=== PATIENT | female | born 1990 | race Caucasian/White ===

== ENCOUNTER 2017-08-08 09:36 | Emergency (ER) | payer SELFPAY | END 2017-08-08 10:50 | disposition home or self-care (01) | LOC: D.ER 09:36 | DX: J20.9 Acute bronchitis, unspecified (principal); J06.9 Acute upper respiratory infection, unspecified ==

== ENCOUNTER 2017-10-17 13:05 | Emergency (ER) | payer SELFPAY | END 2017-10-17 15:33 | disposition home or self-care (01) | LOC: D.ER 13:05 | DX: J06.9 Acute upper respiratory infection, unspecified (principal) ==

== ENCOUNTER 2018-03-10 11:38 | Emergency (ER) | payer MEDICAID ==
[~2018-03-10] VITALS: Ht 154.9 cm; Wt 50.0 kg
[2018-03-10 11:48] VITALS: Ht 154.9 cm; Wt 50.0 kg
[2018-03-10] MEDS ORDERED: KEFLEX500 MG PO (11:51)
[2018-03-10 12:13] LABS: APPEARANCE CLEAR (CLEAR); BILIRUBIN NEGATIVE (NEGATIVE); COLOR YELLOW (YELLOW); GLUCOSE NEGATIVE (NEGATIVE); KETONE NEGATIVE (NEGATIVE); NITRITE NEGATIVE (NEGATIVE); PROTEIN NEGATIVE (NEGATIVE); SPECIFIC GRAVITY 1.015 (1.005-1.020); UROBILINOGEN NORMAL (NORMAL)
[2018-03-10] MEDS ORDERED: MONISTAT DERM TOPICAL (12:42)
[2018-03-10 13:25] VITALS: BP 112/68
== END 2018-03-10 13:30 | disposition home or self-care (01) ==
LOC: D.ER 11:38
PROVIDERS: Emergency Medicine
DX: O26.892 Other specified pregnancy related conditions, second trimester (principal); Z3A.00 Weeks of gestation of pregnancy not specified; R10.9 Unspecified abdominal pain; B37.3 Candidiasis of vulva and vagina

== ENCOUNTER 2018-09-28 15:54 | Emergency (ER) | payer MEDICAID ==
[~2018-09-28] VITALS: Ht 154.9 cm; Wt 63.6 kg
[~2018-09-28 15:54] MED LIST: KEFLEX500 MG PO; MONISTAT DERM TOPICAL
[2018-09-28 15:59] VITALS: Ht 154.9 cm; Wt 63.6 kg
[2018-09-28 16:41] LABS: BASOPHILS 0.3 % (0-2); EOSINOPHILS 0.9 % (0-7); HEMATOCRIT 32.5 % (36.0-48.0); HEMOGLOBIN 10.9 g/dL (12-16); IMMATURE GRANULOCYTES 0.4 % (0-5); LYMPHOCYTES 18.9 % (15-50); MCH 29.4 pg (26.0-34.0); MCHC 33.5 g/dL (31.0-37.0); MCV 87.6 fL (80.0-100.0); MEAN PLATELET VOLUME 9.7 fL (7.4-10.4); MONOCYTES 6.1 % (2-11); NEUTROPHILS 73.4 % (40-80); PLATELET COUNT 334 10x3/uL (130-400); RBC 3.71 10x6/uL (4.00-5.40); RDW 13.1 % (11.5-14.5); WBC 7.9 10x3/uL (4.8-10.8)
[2018-09-28 16:45] LABS: ALBUMIN 2.6 g/dL (3.4-5.0); ALKALINE PHOSPHATASE 168 U/L (46-116); ALT (SGPT) 19 U/L (10-68); BILIRUBIN - TOTAL 0.36 mg/dL (0.2-1.3); CALC OSMOLALITY 267 mosm/kg (275-300); CALCIUM 8.9 mg/dL (8.5-10.1); CARBON DIOXIDE 22.8 mmol/L (21.0-32.0); CHLORIDE - SERUM 99 mmol/L (98-107); CREATININE - SERUM 0.5 mg/dL (0.6-1.3); GLUCOSE 85 mg/dL (74-106); SODIUM 135 mmol/L (136-145); UREA NITROGEN 9 mg/dL (7-18); eGFR NON AFRICAN AMERICAN > 90 mL/min (90-120)
[2018-09-28 17:20] LABS: APPEARANCE CLEAR (CLEAR); BILIRUBIN NEGATIVE (NEGATIVE); COLOR YELLOW (YELLOW); GLUCOSE NEGATIVE (NEGATIVE); KETONE NEGATIVE (NEGATIVE); NITRITE NEGATIVE (NEGATIVE); PROTEIN TRACE mg/dL (NEGATIVE); UROBILINOGEN NORMAL (NORMAL)
[2018-09-28 17:21] LABS: BACTERIA MANY /hpf (NONE SEEN); RED CELLS - URINE OCC /hpf (0-5); WHITE CELLS - URINE 0-5 /hpf (0-5)
[2018-09-28 18:39] VITALS: BP 108/64
== END 2018-09-28 18:40 | disposition home or self-care (01) ==
LOC: D.ER 15:54
PROVIDERS: Family Medicine
DX: O26.893 Other specified pregnancy related conditions, third trimester (principal); Z3A.32 32 weeks gestation of pregnancy; E86.0 Dehydration

== ENCOUNTER 2020-02-10 17:03 | Emergency (ER) | payer MEDICAID ==
[~2020-02-10] VITALS: Ht 154.9 cm; Wt 53.2 kg
[2020-02-10 17:19] VITALS: Ht 154.9 cm; Wt 53.2 kg
[2020-02-10 17:46] LABS: BASOPHILS 0.8 % (0-2); EOSINOPHILS 10.1 % (0-7); HEMATOCRIT 36.9 % (36.0-48.0); HEMOGLOBIN 12.3 g/dL (12-16); IMMATURE GRANULOCYTES 0.1 % (0-5); LYMPHOCYTES 34.5 % (15-50); MCH 30.3 pg (26.0-34.0); MCHC 33.3 g/dL (31.0-37.0); MCV 90.9 fL (80.0-100.0); MEAN PLATELET VOLUME 8.9 fL (7.4-10.4); MONOCYTES 5.1 % (2-11); NEUTROPHILS 49.4 % (40-80); PLATELET COUNT 318 10x3/uL (130-400); RBC 4.06 10x6/uL (4.00-5.40); RDW 14.4 % (11.5-14.5); WBC 7.7 10x3/uL (4.8-10.8)
[2020-02-10 18:11] LABS: CALC OSMOLALITY 269 mosm/kg (275-300); CALCIUM 8.7 mg/dL (8.5-10.1); CARBON DIOXIDE 26.5 mmol/L (21.0-32.0); CHLORIDE - SERUM 103 mmol/L (98-107); CREATININE - SERUM 0.6 mg/dL (0.6-1.3); GLUCOSE 75 mg/dL (74-106); POTASSIUM - SERUM 3.6 mmol/L (3.5-5.1); SODIUM 135 mmol/L (136-145); UREA NITROGEN 14 mg/dL (7-18); eGFR NON AFRICAN AMERICAN > 90 mL/min (90-120)
[2020-02-10 18:19] LABS: ALBUMIN 3.9 g/dL (3.4-5.0); ALKALINE PHOSPHATASE 73 U/L (30-120); ALT (SGPT) 21 U/L (10-68); AMYLASE - SERUM 73 U/L (25-115); BILIRUBIN - TOTAL 0.48 mg/dL (0.2-1.3); LIPASE 123 U/L (73-393); PROTEIN - SERUM 7.8 g/dL (6.4-8.2)
[2020-02-10 18:20] LABS: BILIRUBIN NEGATIVE (NEGATIVE); GLUCOSE NEGATIVE (NEGATIVE); KETONE NEGATIVE (NEGATIVE); NITRITE NEGATIVE (NEGATIVE); RED CELLS - URINE 0-5 /hpf (0-5); SPECIFIC GRAVITY 1.025 (1.005-1.020); TROPONIN-I < 0.017 ng/mL (0.000-0.060); UROBILINOGEN NORMAL (NORMAL); WHITE CELLS - URINE 0-5 /hpf (NEGATIVE)
[2020-02-10 18:21] LABS: BACTERIA MODERATE /hpf (NEGATIVE); HCG URINE NEGATIVE (NEGATIVE)
[2020-02-10] MEDS ORDERED: MACROBID100 MG PO (18:50)
[2020-02-10] MEDS ORDERED: KEFLEX500 MG PO (18:50)
[2020-02-10] MEDS ORDERED: ZOFRAN ODT4 MG/UDTAB PO (18:50)
[2020-02-10 19:18] VITALS: BP 130/92
== END 2020-02-10 19:18 | disposition home or self-care (01) ==
LOC: D.ER 17:03
PROVIDERS: Family Medicine
DX: N39.0 Urinary tract infection, site not specified (principal); R11.2 Nausea with vomiting, unspecified; R10.30 Lower abdominal pain, unspecified; R51 Headache; H92.09 Otalgia, unspecified ear

== ENCOUNTER 2020-04-10 19:42 | Emergency (ER) | payer MEDICAID ==
[~2020-04-10] VITALS: Ht 154.9 cm; Wt 54.5 kg
[~2020-04-10 19:42] MED LIST changes: +MACROBID100 MG PO; +ZOFRAN ODT4 MG/UDTAB PO
[2020-04-10 19:49] VITALS: Ht 154.9 cm; Wt 54.5 kg
[2020-04-10 20:15] LABS: BASOPHILS 0.9 % (0-2); EOSINOPHILS 7.4 % (0-7); HEMATOCRIT 39.6 % (36.0-48.0); HEMOGLOBIN 13.2 g/dL (12-16); IMMATURE GRANULOCYTES 0.2 % (0-5); LYMPHOCYTES 40.6 % (15-50); MCH 30.6 pg (26.0-34.0); MCHC 33.3 g/dL (31.0-37.0); MCV 91.9 fL (80.0-100.0); MEAN PLATELET VOLUME 8.9 fL (7.4-10.4); MONOCYTES 6.3 % (2-11); NEUTROPHILS 44.6 % (40-80); PLATELET COUNT 257 10x3/uL (130-400); RBC 4.31 10x6/uL (4.00-5.40); RDW 12.8 % (11.5-14.5); WBC 6.6 10x3/uL (4.8-10.8)
[2020-04-10 20:24] LABS: CALC OSMOLALITY 270 mosm/kg (275-300); CALCIUM 8.8 mg/dL (8.5-10.1); CARBON DIOXIDE 29.4 mmol/L (21.0-32.0); CHLORIDE - SERUM 101 mmol/L (98-107); CREATININE - SERUM 0.8 mg/dL (0.6-1.3); POTASSIUM - SERUM 3.5 mmol/L (3.5-5.1); SODIUM 137 mmol/L (136-145); UREA NITROGEN 11 mg/dL (7-18); eGFR NON AFRICAN AMERICAN 89 mL/min (90-120)
[2020-04-10 20:27] LABS: GLUCOSE 69 mg/dL (74-106)
[2020-04-10 20:35] LABS: HCG SERUM NEGATIVE (NEGATIVE)
[2020-04-10 20:38] LABS: ALBUMIN 3.8 g/dL (3.4-5.0); ALKALINE PHOSPHATASE 76 U/L (30-120); ALT (SGPT) 16 U/L (10-68); LIPASE 123 U/L (73-393); PROTEIN - SERUM 7.8 g/dL (6.4-8.2); UDS - AMPHET NEGATIVE QUAL (NEGATIVE); UDS - BARB NEGATIVE QUAL (NEGATIVE); UDS - BENZO NEGATIVE QUAL (NEGATIVE); UDS - COCAINE NEGATIVE QUAL (NEGATIVE); UDS - OPIATE NEGATIVE QUAL (NEGATIVE); UDS - PCP NEGATIVE QUAL (NEGATIVE); UDS - THC NEGATIVE QUAL (NEGATIVE)
[2020-04-10] MEDS ORDERED: ZOFRAN ODT4 MG/UDTAB PO (20:47)
[2020-04-10 20:57] LABS: BILIRUBIN NEGATIVE (NEGATIVE); GLUCOSE NEGATIVE (NEGATIVE); KETONE NEGATIVE (NEGATIVE); NITRITE NEGATIVE (NEGATIVE); SPECIFIC GRAVITY 1.015 (1.005-1.020); UROBILINOGEN NORMAL (NORMAL)
[2020-04-10 21:49] VITALS: BP 113/68
== END 2020-04-10 21:50 | disposition home or self-care (01) ==
LOC: D.ER 19:42
PROVIDERS: Family Medicine
DX: R10.9 Unspecified abdominal pain (principal); R11.2 Nausea with vomiting, unspecified; R42 Dizziness and giddiness; R51 Headache

== ENCOUNTER 2020-04-18 04:37 | Emergency (ER) | payer MEDICAID ==
[~2020-04-18] VITALS: Ht 154.9 cm; Wt 54.4 kg
[2020-04-18 04:40] VITALS: Ht 154.9 cm; Wt 54.4 kg
[2020-04-18 04:54] LABS: BILIRUBIN NEGATIVE (NEGATIVE); GLUCOSE NEGATIVE (NEGATIVE); HCG URINE NEGATIVE (NEGATIVE); KETONE NEGATIVE (NEGATIVE); NITRITE NEGATIVE (NEGATIVE); UROBILINOGEN NORMAL (NORMAL)
[2020-04-18 04:57] LABS: AMORPHOUS SEDIMENT >1+ /lpf (NONE SEEN); BACTERIA FEW /hpf (NEGATIVE)
[2020-04-18 05:03] LABS: BASOPHILS 0.6 % (0-2); EOSINOPHILS 7.8 % (0-7); HEMATOCRIT 37.6 % (36.0-48.0); HEMOGLOBIN 12.9 g/dL (12-16); IMMATURE GRANULOCYTES 0.1 % (0-5); LYMPHOCYTES 30.4 % (15-50); MCH 30.7 pg (26.0-34.0); MCHC 34.3 g/dL (31.0-37.0); MCV 89.5 fL (80.0-100.0); MONOCYTES 7.8 % (2-11); NEUTROPHILS 53.3 % (40-80); PLATELET COUNT 270 10x3/uL (130-400); RDW 12.8 % (11.5-14.5); WBC 8.3 10x3/uL (4.8-10.8)
[2020-04-18 05:13] LABS: CALC OSMOLALITY 273 mosm/kg (275-300); CALCIUM 8.9 mg/dL (8.5-10.1); CARBON DIOXIDE 28.9 mmol/L (21.0-32.0); CHLORIDE - SERUM 102 mmol/L (98-107); CREATININE - SERUM 0.8 mg/dL (0.6-1.3); GLUCOSE 93 mg/dL (74-106); POTASSIUM - SERUM 3.7 mmol/L (3.5-5.1); SODIUM 136 mmol/L (136-145); UREA NITROGEN 17 mg/dL (7-18); eGFR NON AFRICAN AMERICAN 89 mL/min (90-120)
[2020-04-18 05:18] LABS: ALBUMIN 3.7 g/dL (3.4-5.0); ALKALINE PHOSPHATASE 66 U/L (30-120); ALT (SGPT) 19 U/L (10-68); AMYLASE - SERUM 111 U/L (25-115); BILIRUBIN - TOTAL 0.26 mg/dL (0.2-1.3); LIPASE 369 U/L (73-393); PROTEIN - SERUM 7.6 g/dL (6.4-8.2)
[2020-04-18] MEDS ORDERED: OMNICEF300 MG PO (06:49)
[2020-04-18] MEDS ORDERED: PHENAZOPYRIDIN100 MG PO (06:49)
[2020-04-18 07:02] VITALS: BP 118/62
== END 2020-04-18 07:02 | disposition home or self-care (01) ==
LOC: D.ER 04:37
PROVIDERS: Family Medicine
DX: N39.0 Urinary tract infection, site not specified (principal); R10.9 Unspecified abdominal pain

== ENCOUNTER 2020-06-15 17:18 | Emergency (ER) | payer MEDICAID ==
[~2020-06-15] VITALS: Ht 154.9 cm; Wt 55.9 kg
[~2020-06-15 17:18] MED LIST changes: +OMNICEF300 MG PO; +PHENAZOPYRIDIN100 MG PO
[2020-06-15 17:31] VITALS: Ht 154.9 cm; Wt 55.9 kg
[2020-06-15 19:19] LABS: BILIRUBIN NEGATIVE (NEGATIVE); HCG URINE POSITIVE (NEGATIVE); KETONE SMALL mg/dL (NEGATIVE); NITRITE NEGATIVE (NEGATIVE); UROBILINOGEN NORMAL mg/dL (< 2)
[2020-06-15 19:20] LABS: BASOPHILS 0.6 % (0-2); EOSINOPHILS 4.5 % (0-7); HEMATOCRIT 38.6 % (36.0-48.0); HEMOGLOBIN 13.1 g/dL (12-16); IMMATURE GRANULOCYTES 0.3 % (0-5); LYMPHOCYTES 27.3 % (15-50); MCH 30.9 pg (26.0-34.0); MCHC 33.9 g/dL (31.0-37.0); MEAN PLATELET VOLUME 8.9 fL (7.4-10.4); MONOCYTES 5.9 % (2-11); NEUTROPHILS 61.4 % (40-80); PLATELET COUNT 301 10x3/uL (130-400); RBC 4.24 10x6/uL (4.00-5.40); RDW 13.5 % (11.5-14.5); WBC 7.1 10x3/uL (4.8-10.8)
[2020-06-15 19:32] LABS: CALC OSMOLALITY 271 mosm/kg (275-300); CALCIUM 8.6 mg/dL (8.5-10.1); CARBON DIOXIDE 26.3 mmol/L (21.0-32.0); CHLORIDE - SERUM 105 mmol/L (98-107); CREATININE - SERUM 0.6 mg/dL (0.6-1.3); GLUCOSE 95 mg/dL (74-106); POTASSIUM - SERUM 3.8 mmol/L (3.5-5.1); SODIUM 137 mmol/L (136-145); UREA NITROGEN 6 mg/dL (7-18); eGFR NON AFRICAN AMERICAN > 90 mL/min (90-120)
[2020-06-15 19:39] LABS: ALBUMIN 3.5 g/dL (3.4-5.0); ALKALINE PHOSPHATASE 55 U/L (30-120); ALT (SGPT) 14 U/L (10-68); AMYLASE - SERUM 69 U/L (25-115); BILIRUBIN - TOTAL 0.35 mg/dL (0.2-1.3); LIPASE 119 U/L (73-393); PROTEIN - SERUM 7.2 g/dL (6.4-8.2)
[2020-06-15 19:40] LABS: TROPONIN-I < 0.017 ng/mL (0.000-0.060)
[2020-06-16 00:13] VITALS: BP 102/58
== END 2020-06-16 00:16 | disposition home or self-care (01) ==
LOC: D.ER 17:18
PROVIDERS: Family Medicine
DX: O26.899 Other specified pregnancy related conditions, unspecified trimester (principal); R10.9 Unspecified abdominal pain; Z3A.00 Weeks of gestation of pregnancy not specified

== ENCOUNTER 2020-07-01 22:09 | Emergency (ER) | payer MEDICAID ==
[~2020-07-01] VITALS: Ht 154.9 cm; Wt 56.7 kg
[2020-07-01 22:52] VITALS: Ht 154.9 cm; Wt 56.7 kg
[2020-07-02] MEDS ORDERED: FLUTICASONE PRO16 GM NASAL (00:11)
[2020-07-02] MEDS ORDERED: KEFLEX500 MG PO (00:11)
[2020-07-02 00:19] VITALS: BP 114/74
== END 2020-07-02 00:19 | disposition home or self-care (01) ==
LOC: D.ER 22:09
DX: O26.891 Other specified pregnancy related conditions, first trimester (principal); Z3A.01 Less than 8 weeks gestation of pregnancy; J01.90 Acute sinusitis, unspecified; R51.9 Headache, unspecified

== ENCOUNTER 2020-12-22 09:40 | Outpatient (CLI) | payer MEDICAID ==
[2020-11-16 15:34] VITALS: BMI 26.5
[~2020-12-22 09:40] MED LIST changes: +AUGMENTIN 875-11 TAB PO; +FLUTICASONE PRO16 GM NASAL
== END 2020-12-22 11:45 | disposition home or self-care (01) ==
LOC: D.LDO 09:40
PROVIDERS: ATTEND Obstetrics & Gynecology
DX: O26.899 Other specified pregnancy related conditions, unspecified trimester (principal); R11.2 Nausea with vomiting, unspecified

== ENCOUNTER 2020-12-24 23:03 | Outpatient (CLI) | payer MEDICAID ==
[2020-11-16 15:34] VITALS: BMI 26.5
[2020-12-24 23:19] LABS: BILIRUBIN NEGATIVE (NEGATIVE); KETONE LARGE mg/dL (NEGATIVE); NITRITE NEGATIVE (NEGATIVE); UROBILINOGEN 4 mg/dL (< 2)
[2020-12-24 23:27] LABS: UDS - AMPHET NEGATIVE QUAL (NEGATIVE); UDS - BARB NEGATIVE QUAL (NEGATIVE); UDS - BENZO NEGATIVE QUAL (NEGATIVE); UDS - COCAINE NEGATIVE QUAL (NEGATIVE); UDS - OPIATE NEGATIVE QUAL (NEGATIVE); UDS - PCP NEGATIVE QUAL (NEGATIVE); UDS - THC NEGATIVE QUAL (NEGATIVE)
== END 2020-12-25 01:20 | disposition home or self-care (01) ==
LOC: D.LDO 23:03 → D.LD 23:06 → D.LDO 12-25 01:20
PROVIDERS: ATTEND Obstetrics & Gynecology
DX: O47.9 False labor, unspecified (principal)

== ENCOUNTER 2021-01-08 22:12 | Inpatient (IN) | payer MEDICAID ==
[~2021-01-08] VITALS: Ht 154.9 cm; Wt 65.8 kg
[2021-01-08 22:45] LABS: BASOPHILS 0.1 % (0-2); BILIRUBIN NEGATIVE (NEGATIVE); EOSINOPHILS 1.8 % (0-7); HEMATOCRIT 28.1 % (36.0-48.0); HEMOGLOBIN 9.1 g/dL (12-16); IMMATURE GRANULOCYTES 0.4 % (0-5); KETONE SMALL mg/dL (NEGATIVE); LYMPHOCYTE ABS# 2.05 10x3/uL (1.18-3.74); LYMPHOCYTES 27.6 % (15-50); MCH 26.6 pg (26.0-34.0); MCHC 32.4 g/dL (31.0-37.0); MCV 82.2 fL (80.0-100.0); MEAN PLATELET VOLUME 9.4 fL (7.4-10.4); MONOCYTES 10.8 % (2-11); NEUTROPHILS 59.3 % (40-80); NITRITE NEGATIVE (NEGATIVE); PLATELET COUNT 459 10x3/uL (130-400); RBC 3.42 10x6/uL (4.00-5.40); RDW 14.1 % (11.5-14.5); UROBILINOGEN NORMAL mg/dL (< 2); WBC 7.4 10x3/uL (4.8-10.8)
[2021-01-08 22:47] LABS: BACTERIA MODERATE HPF (NONE SEEN); SQUAMOUS EPITHELIAL 0-5 HPF (0-4); WHITE CELLS - URINE 0-5 HPF (0-4)
[2021-01-08 22:48] LABS: UDS - AMPHET NEGATIVE QUAL (NEGATIVE); UDS - BARB NEGATIVE QUAL (NEGATIVE); UDS - BENZO NEGATIVE QUAL (NEGATIVE); UDS - COCAINE NEGATIVE QUAL (NEGATIVE); UDS - OPIATE NEGATIVE QUAL (NEGATIVE); UDS - PCP NEGATIVE QUAL (NEGATIVE); UDS - THC NEGATIVE QUAL (NEGATIVE)
[2021-01-09 07:38] VITALS: BP 92/50; Ht 154.9 cm; Wt 65.8 kg
== END 2021-01-10 00:05 | disposition home or self-care (01) | DRG 833 ==
LOC: D.LD 22:12 → D.LDO 22:12 → D.LD 23:56 → D.LDO 01-09 09:35 → D.LD 01-09 09:36
PROVIDERS: ADMIT Student in an Organized Health Care Education/Training Program; ATTEND Student in an Organized Health Care Education/Training Program
DX: O47.03 False labor before 37 completed weeks of gestation, third trimester (principal); Z3A.35 35 weeks gestation of pregnancy

== ENCOUNTER → 2021-01-11 13:16 | Outpatient (CLI) | payer MEDICAID ==
[2021-01-09 07:38] VITALS: BMI 27.4
== END | disposition home or self-care (01) ==
LOC: D.US 13:00
PROVIDERS: ATTEND Obstetrics & Gynecology
DX: O35.9XX0 Maternal care for (suspected) fetal abnormality and damage, unspecified, not applicable or unspecified (principal)

== ENCOUNTER 2021-01-12 17:19 | Inpatient (IN) | payer MEDICAID ==
[2021-01-12] VITALS (8 sets, daily range): BP systolic 97–133; BP diastolic 59–88; Ht 154.9 cm; Wt 65.8 kg
[~2021-01-12] VITALS: Ht 154.9 cm; Wt 65.8 kg
--- NOTE | ~2021-01-12 | OP ---
PATIENT NAME: TROY GLYNN MEDICAL RECORD: [id number] :89 LOCATION:[id number] ADMISSION DATE:01/12/21 SURGEON: ISIDRO KEBEDE DO DATE OF OPERATION: 01/12/2021 DATE OF SERVICE: 01/12/2021 PREOPERATIVE DIAGNOSES: A 36 weeks, oligohydramnios, prior , desires sterilization. POSTOPERATIVE DIAGNOSES: A 36 weeks, oligohydramnios, prior , desires sterilization, adhesions. PRIMARY SURGEON: Isidro Kebede DO ANESTHESIA: Spinal. PROCEDURE: Repeat low transverse via Pfannenstiel incision, bilateral tubal ligation via Nuvia method. FINDINGS: Dense adhesions. Viable male infant born at 18:45. Loose nuchal cord times 1, easily reduced. Weight 2571 grams, Apgars 8 and 8 with clear amniotic fluid. SPECIMENS: Placenta, cord pH and cord blood. ESTIMATED BLOOD LOSS: 800 mL. IV FLUIDS: Per anesthesia. URINE OUTPUT: 200 mL clear yellow urine. INFECTION PROPHYLAXIS: 2 grams Ancef. COMPLICATIONS: None. Prior to procedure risks and benefits of surgery were reviewed and the patient desires no further childbearing and desires permanent sterilization and consents have been signed prior in the office for sterilization. DESCRIPTION OF PROCEDURE: The patient was taken to the operating room. Spinal anesthesia was administered. She was prepped and draped in normal sterile fashion in dorsal supine position with leftward tilt. A Pfannenstiel skin incision was made with a scalpel and carried down to the underlying layer of fascia with the Bovie. The fascia was incised in the midline and incision extended laterally with Aldana scissors. Inferior aspect of fascial incision was grasped with Nohemi clamps and rectus muscle was dissected off sharply. Very dense scar tissue and flimsy rectus muscle noted at this time. Nohemi was then moved to the superior aspect of the fascial incision and rectus muscle again dissected off sharply. Rectus muscle was in the midline. Peritoneum was noted, grasped with hemostats and tented upwards. Area without any bowel or bladder noted, clear visualization. I entered sharply with Metzenbaums and then further with gentle traction. Bladder blade was placed. Bladder flap created. Some adhesions noted, and bladder blade replaced after bladder flap created. A transverse incision was made with the scalpel and then extended OPERATIVE REPORT [id number] TROY GLYNN using gentle traction in upward downward fashion. The 's head was brought to the incision. Head and shoulders were delivered without difficulty. Nuchal cord x1 loose, noted to be easily reduce. Body and shoulders delivered without difficulty. Mouth and nose suctioned, cord was clamped and cut, and infant handed to awaiting pediatric nurse. Clear amniotic fluid noted and infant was crying with movement noted. Placenta delivered manually. Uterus was then exteriorized. A dry laparotomy sponge was used to assure complete removal of placental membranes. Hysterotomy was reapproximated with 0 Vicryl in a running-locked fashion with good hemostasis. Posterior cul-de-sac was irrigated and suctioned to remove blood clots and fluid. Hysterotomy reexamined and appropriate hemostatic. Uterus replaced into the abdominal cavity. Gutters cleaned with moist laparotomy sponges to remove blood clots and fluid. Muscle was reapproximated with 0 Monocryl in interrupted fashion. Some muscles with some bleeding, a little bit of Will placed at superior aspect. Fascia closed in a continuous running fashion with 0 Vicryl with good hemostasis. Fascia was closed in a running fashion. Subcutaneous layer irrigated and any bleeding vessels cauterized. Subcutaneous layer reapproximated and skin closed in a subcuticular fashion with 3-0 Monocryl and Dermabond. The patient tolerated the procedure well and was taken to the recovery room in stable condition. All lap, instrument and needle counts were correct times 2. TRANSINT:[id number] Voice Confirmation ID: [id number] DOCUMENT ID: [id number] ISIDRO KEBEDE DO CC: [id number] DICTATION DATE: 01/16/21 1325 SERVICE TECH: 01/17/21 0057 DIS IN 01/14/21 [facility] [address] [id number]
[2021-01-12 18:03] LABS: BASOPHILS 0.1 % (0-2); EOSINOPHILS 0.8 % (0-7); HEMOGLOBIN 8.7 g/dL (12-16); IMMATURE GRANULOCYTES 0.3 % (0-5); LYMPHOCYTE ABS# 2.41 10x3/uL (1.18-3.74); LYMPHOCYTES 34.1 % (15-50); MCH 26.4 pg (26.0-34.0); MCHC 32.2 g/dL (31.0-37.0); MCV 81.8 fL (80.0-100.0); MEAN PLATELET VOLUME 9.5 fL (7.4-10.4); MONOCYTES 11.2 % (2-11); NEUTROPHIL ABS# 3.77 10x3/uL (1.56-6.13); NEUTROPHILS 53.5 % (40-80); PLATELET COUNT 433 10x3/uL (130-400); WBC 7.1 10x3/uL (4.8-10.8)
--- NOTE | 2021-01-12 20:44 | NUR ---
PT RECEIVED FROM RECOVERY. A,A,OX4. S1,S2 REGULAR RATE AND RHYTHM. BREATH SOUNDS CLEAR IN ALL LOBES. BOWEL SOUNDS NORMOACTIVE. LARGE FOAM BANDAGE ON LOWER TRANSVERSE ABDOMEN. FF,MIDLINE U1. SMALL AMOUNT RUBRA LOCHIA NOTED. PERIPAD IN PLACE AND ICE PACK ON INCISION SITE. SCDS ON. CABALLERO DRAINING TO BEDSIDE DRAINAGE. 350 MLS LIGHT CLEAR YELLOW URINE IN BAG. PI IN LAFTE FOREARM SALINE LOCKED. PIV IN RIGHT WRIST INFUSING 125 MLS/HR NS WITH PITOCIN. SRUPX2. VSS. CALL LIGHT WITHIN REACH. WILL CONTINUE TO MONITOR.
--- NOTE | 2021-01-12 21:30 | NUR ---
FF,MIDLINE, U1. SMALL AMOUNT RUBRA LOCHIA NOTED. PERIPADS AND ROCAEL CHANGED. SPRITE PROVIDED.
--- NOTE | 2021-01-12 21:48 | NUR ---
PT CALLS OUT [employer]ANE [employer] HELPER LIGHT REQUESTING PAIN MEDICATION. DILAUDID ADMINISTERED PER EMAR. INCENTIVE SPIROMETER EDUCATION DONE. GOOD EFFORT NOTED. PT DENIES NEEDS AT THIS TIME.
--- NOTE | 2021-01-12 22:44 | NUR ---
PT RESTING WITH EYES CLOSED, BREATHING NONLABORED. WILL CONTINUE TO MONITOR.
--- NOTE | 2021-01-12 23:16 | NUR ---
JEFF MCNEILL. PT DENIES NEEDS AT THIS TIME.
--- NOTE | 2021-01-13 00:32 | NUR ---
FF,MIDLINE U1. SMALL AMOUNT RUBRA LOCHIA NOTED, PERIPADS CHANGED. PERICARE DONE. ICE PACK PROVIDED. PT DENIES NEEDS AT THIS TIME.
--- NOTE | 2021-01-13 01:15 | NUR ---
GIRISH PROVIDED. PT REQUESTS PAIN MEDICATION.
--- NOTE | 2021-01-13 01:35 | NUR ---
MEDICATION ADMINISTERED PER EMAR. BEDSIDE CABALLERO BAG EMPTIED 750 MLS YELLOW URINE. PT DENIES NEEDS AT THIS TIME AND STATES SHE IS GOING TO TRY TO SLEEP NOW.
--- NOTE | 2021-01-13 05:59 | NUR ---
REPORT GIVEN TO DR RUTLEDGE OF PT BLEEDING. NO NEW ORDERS RECEIVED AT THIS TIME.
--- NOTE | 2021-01-13 06:17 | NUR ---
MEDICATION ADMINISTERED PER EMAR. PT DENIES NEEDS AT THIS TIME.
[2021-01-13 07:15] LABS: RAPID PLASMA REAGIN Non Reactive (Non Reactive)
[2021-01-13 07:23] LABS: BASOPHILS 0.3 % (0-2); EOSINOPHILS 0.7 % (0-7); HEMATOCRIT 27.5 % (36.0-48.0); HEMOGLOBIN 8.7 g/dL (12-16); IMMATURE GRANULOCYTES 0.1 % (0-5); LYMPHOCYTE ABS# 1.63 10x3/uL (1.18-3.74); LYMPHOCYTES 21.3 % (15-50); MCH 25.7 pg (26.0-34.0); MCHC 31.6 g/dL (31.0-37.0); MCV 81.4 fL (80.0-100.0); MEAN PLATELET VOLUME 9.6 fL (7.4-10.4); MONOCYTES 7.5 % (2-11); NEUTROPHIL ABS# 5.36 10x3/uL (1.56-6.13); NEUTROPHILS 70.1 % (40-80); PLATELET COUNT 367 10x3/uL (130-400); RBC 3.38 10x6/uL (4.00-5.40); WBC 7.6 10x3/uL (4.8-10.8)
[2021-01-13 07:39] VITALS: BP 106/65
--- NOTE | 2021-01-13 07:39 | NUR ---
PT SITTING UPRIGHT IN BED. AWAKE. VSS. HRRR WITHOUT AUDIBLE MURMUR. BBS CLEAR. BS HYPOACTIVE. ABDOMEN SOFT/NON-DISTENDED. ABDOMINAL DRESSING DRY WITHOUT DRAINAGE NOTED. PT DENIES PASSING GAS. STATES BELCHING SOME. FUNDUS FIRM AT U/1. RUBRA LOCHIA SMALL AMT. NO CLOTS NOTED. PERIPAD CHANGED. NEG HOMANS' SIGN. PPP. NO EDEMA NOTED TO BLE. SCDS ON BLE. PUMP ON. CABALLERO TO GRAVITY DRAINING CONCENTRATED YELLOW URINE. PIV SITE CLEAR TO RIGHT WRIST. NS WITH PITOCIN INFUSING AT 125 ML/HR VIA ALARIS PUMP. SL TO LEFT WRIST. SITE CLEAR. FLUSHES EASILY WITH 10 ML NS. PT DENIES PAIN. DECLINES ICE PACK TO INCISION. PT REQUESTING TO GET UP AND GO TO NURSERY TO SEE INFANT. SR UP X 2. CALL LIGHT IN REACH. CRANBERRY JUICE PROVIDED TO PT PER PT REQUEST.
--- NOTE | 2021-01-13 08:30 | NUR ---
DR RUTLEDGE NOTIFIED OF PT REQUEST TO GET UP AND GO SEE . ORDERS RECEIVED.
--- NOTE | 2021-01-13 08:39 | NUR ---
TORADOL 30 MG GIVEN SIVP OVER 2 MINUTES. PT INSTRUCTED ON MED. VERBALIZES UNDERSTANDING.
--- NOTE | 2021-01-13 08:40 | NUR ---
CABALLERO DC'D WITH 100 ML OF CONCENTRATED YELLOW URINE NOTED IN BAG. PIV CONVERTED TO SALINE LOCK. FLUSHES EASILY WITH 10 ML NS. SITE CLEAR. PT OOB AND AMB TO BR. UNABLE TO VOID. PERICARE DONE PER PT. PANTIES AND PAD ON. GOWN CHANGED. PT AMBULATES TO NSY TO [place] WITH . CARYN ACTIVITY WELL.
--- NOTE | 2021-01-13 09:27 | NUR ---
PT AMBULATES BACK TO ROOM.
--- NOTE | 2021-01-13 10:51 | NUR ---
PT LYING TO RIGHT SIDE IN BED. WAKES UPON ENTERING ROOM. STATES NOT PASSING GAS YET. C/O INCISIONAL PAIN OF "6" ON 0-1O PAIN SCALE. PERCOCET 10/325 AND MYLICON 80 MG GIVEN PO ORDERED. PT INSTRUCTED ON MEDS. VERBALIZES UNDERSTANDING.
--- NOTE | 2021-01-13 10:54 | NUR ---
PT OOB AND AMB TO BR TO VOID.
--- NOTE | 2021-01-13 10:57 | NUR ---
PT VOIDS 400 ML OF CLOUDY, YELLOW URINE.
--- NOTE | 2021-01-13 11:05 | NUR ---
PT AMBULATORY IN HALLS. TOLERATES ACTIVITY WELL.
--- NOTE | 2021-01-13 13:00 | NUR ---
PT UP TO SHOWER. LINENS AND TOILETRIES PROVIDED TO PT.
[2021-01-13 15:09] VITALS: BP 104/63
--- NOTE | 2021-01-13 15:09 | NUR ---
FUNDUS FIRM AT U/1. RUBRA LOCHIA SMALL AMT. PT STATES VOIDING WITHOUT DIFFICULTY-SEE I/O FOR VOIDED X 2 AMOUNTS. PT STATES NOT PASSING GAS YET. PT ENCOURAGED TO AMBULATE MORE IN HALLS. PT PROVIDED APPLE JUICE. VSS.
--- NOTE | 2021-01-13 15:17 | NUR ---
PT C/O INCISIONAL PAIN OF "8" ON 0-10 PAIN SCALE. PERCOCET 10/325 GIVEN PO ORDERED. PT INSTRUCTED ON MED. VERBALIZES UNDERSTANDING. ABDOMINAL DRESSING REMOVED. SKIN STITCHES INTACT. NO REDNESS, SWELLING OR DRAINAGE NOTED TO INCISION.
--- NOTE | 2021-01-13 15:30 | NUR ---
PT AMBULATORY IN HALLS. TOLERATING ACTIVITY WELL.
--- NOTE | 2021-01-13 17:30 | NUR ---
PT AMBULATORY WITH IN OPEN CRIB TO ROOM. PT REQUESTS AND RECEIVES 2 CUPS OF ICE.
--- NOTE | 2021-01-13 18:00 | NUR ---
PT CALLS ON LIGHT. PT STATES PASSING GAS NOW. DENIES NEEDS.
--- NOTE | 2021-01-13 19:15 | NUR ---
BEDSIDE SHIFT REPORT COMPLETED AT THIS TIME
--- NOTE | 2021-01-13 20:17 | NUR ---
PT SLEEPING QUIETLY WITH EVEN RESPIRATIONS, NO DISTRESS NOTED. SIGNIFICANT OTHER AT BEDSIDE FEEDING . WILL COME BACK FOR SHIFT ASSESSMENT.
--- NOTE | 2021-01-13 20:56 | NUR ---
PATIENT LYING ON BED SAYING THAT SHE IS HURTING, PAIN MEDICATION ADMINISTERED PER MD ORDERS AND PT REQUEST, SEE EMAR. SHIFT ASSESSMENT COMPLETED, SEE FLOWSHEET.
[2021-01-13 20:58] VITALS: BP 102/66
--- NOTE | 2021-01-13 22:25 | NUR ---
PATIENT LYING IN BED, BED LOCKED IN LOW POSITION, SIDE RAILS UP, CALL BOUCHER AND TRAY TABLE IN REACH. TYLENOL 650MG PO ADMINISTERED AT THIS TIME, SEE EMAR. PT REQUESTED COKE AND WAS PROVIDED WITH ONE AT THIS TIME. WILL CONTINUE TO MONITOR.
--- NOTE | 2021-01-13 23:30 | NUR ---
PATIENT AMBULATING IN HALLWAY, DENIES NEEDS.
--- NOTE | 2021-01-14 00:01 | NUR ---
PATIENT AMBULATING IN HALLWAY TO GET ICE AND JUICE. NO FURTHER NEEDS IDENTIFIED.
--- NOTE | 2021-01-14 02:54 | NUR ---
PATIENT SITTING UP IN BED ATTEMPTING TO FEED . ICE AND COKE PROVIDED PER PT REQUEST, DENIES OTHER NEEDS. WILL CONTINUE TO MONITOR.
--- NOTE | 2021-01-14 04:58 | NUR ---
PT SITTING IN BED HOLDING . PT DENIES NEEDS.
--- NOTE | 2021-01-14 05:44 | NUR ---
PERCOCET 10/325MG PO ADMINISTERED PER MD ORDERS AND PT REQUEST. SEE EMAR.
--- NOTE | 2021-01-14 06:47 | NUR ---
PATIENT CALLED OUT TO HAVE SOMEONE COME LOOK AT THER INCISION, SHE FEELS LIKE IT RIPPED OPEN. JANAY LEBRONERS TO BEDSIDE.
[2021-01-14 07:24] VITALS: BP 107/58
--- NOTE | 2021-01-14 07:24 | NUR ---
PT SITTING UP IN BED. AWAKE. AAO X 3. VSS. HRRR WITHOUT AUDIBLE MURMUR. BBS CLEAR. BS X 4. ABDOMEN SOFT/NON-DISTENDED. FUNDUS FIRM AT U/U. RUBRA LOCHIA SMALL AMT. NO CLOTS OR HEAVY BLEEDING PER PT STATES. NEG HOMANS' SIGN. PPP. NO EDEMA NOTED TO BLE. SL TO RIGHT WRIST. SITE CLEAR. PT C/O INCISIONAL PAIN OF "6" ON 0-10 PAIN SCALE. ABDOMINAL INCISION OPEN TO AIR. SITE WITHOUT REDNESS, SWELLING OR DRAINAGE NOTED. PT DECLINES FURTHER PAIN MED. STATES "SHE JUST GAVE ME SOMETHING". STATES PASSING GAS. NO BM PER PT STATES. PT STATES WAS GOING TO BREASTFEED, BUT "MY MILK HAS NOT COME IN". PT INSTRUCTED ON STIMULATING MILK PRODUCTION BY ATTEMPTING TO BREASTFEED NOW. PT VERBALIZES UNDERSTANDING. PT PROVIDED APPLE JUICE PER PT REQUEST. SR UP X 2. CALL LIGHT IN REACH.
--- NOTE | 2021-01-14 08:38 | NUR ---
PT AMBULATORY IN ROOM. PT STATES BABY LATCHED FOR "A MINUTE". PT REINSTRUCTED ON NURSING . PT INSTRUCTED TO ATTEMPT TO BREASTFEED FOR 10-15 MINUTES EACH BREAST PRIOR TO BOTTLE FEEDING. PT STATES "I HAVE WHITE STUFF COMING OUT". PT INSTRUCTED THAT IS BREASTMILK. PT VERBALIZES UNDERSTANDING.
--- NOTE | 2021-01-14 10:30 | NUR ---
PT SITTING UP IN BED. STATES C/O INCISIONAL PAIN. DECLINES PAIN MED AT THIS TIME. STATES "IT'S NOT THAT BAD".
--- NOTE | 2021-01-14 11:47 | NUR ---
PT CALLS DIAMOND GR[facility]ER LIGHT. REQUESTS PAIN MED. PERCOCET 10/325 AND MYLICON 80 MG GIVEN PO ORDERED. PT INSTRUCTED ON MEDS. VERBALIZES UNDERSTANDING.
--- NOTE | 2021-01-14 12:08 | NUR ---
DR RUTLEDGE HERE. VISITS WITH PT. DISCUSSES POC WITH PT.
--- NOTE | 2021-01-14 12:18 | NUR ---
PT AMBULATES BACK TO ROOM. ABDOMINAL BINDER PLACED ON PT. PT INSTRUCTED ON PURPOSE. VERBALIZES UNDERSTANDING.
--- NOTE | 2021-01-14 12:31 | NUR ---
PT AMBULATORY IN HALLS. TOLERATING ACTIVITY WELL.
--- NOTE | 2021-01-14 16:01 | NUR ---
DR RUTLEDGE NOTIFIED INFANT NOT BEING DISCHARGED TODAY. ORDERS RECEIVED TO DC PT TO ROOMING IN STATUS. RX ON CHART. PT TO F/U AT [facility] IN 2 WEEKS.
[2021-01-14] MEDS ORDERED: PERCOCET 10-321 EAC1 PO (16:05)
[2021-01-14] MEDS ORDERED: IBUPROFEN800 MG PO (16:06)
--- NOTE | 2021-01-14 16:25 | NUR ---
SALINE LOCK DC'D WITH CATHELON INTACT. PRESSURE BANDAGE TO SITE. PT INFORMED OF ORDERS RECEIVED TO DISCHARGE TO ROOMING IN STATUS. PT VERBALIZES UNDERSTANDING AND IN AGREEMENT.
--- NOTE | 2021-01-14 16:31 | NUR ---
PT C/O INCISIONAL PAIN OF "6" ON 0-10 PAIN SCALE. PERCOCET 10/325 AND MYLICON 80 MG GIVEN PO ORDERED. PT INSTRUCTED ON MEDS. VERBALIZES UNDERSTANDING.
--- NOTE | 2021-01-14 16:40 | NUR ---
DISCHARGE INSTRUCTIONS GIVEN TO PT. PT VERBALIZES UNDERSTANDING OF ALL INSTRUCTIONS. COPIES GIVEN TO PT. PT GIVEN RX FOR PERCOCET AND IBUPROFEN. PT ALSO INSTRUCTED ON ROOMING IN POLICY. PT VERBALIZES UNDERSTANDING. PT PREPARES FOR DISCHARGE.
--- NOTE | 2021-01-14 16:55 | NUR ---
PT TRANSFERED VIA AMBULATORY TO ROOM 1220. PT ORIENTED TO ROOM. PT DISCHARGED INTO ROOMING IN STATUS.
== END 2021-01-14 16:55 | disposition home or self-care (01) | DRG 785 ==
LOC: D.LD 17:19
PROVIDERS: ADMIT Obstetrics & Gynecology; ATTEND Obstetrics & Gynecology
PROC: 10D00Z1 Extraction of Products of Conception, Low, Open Approach (ICD-10-PCS; principal; 2021-01-12 18:30)
PROC: 0UB70ZZ Excision of Bilateral Fallopian Tubes, Open Approach (ICD-10-PCS; 2021-01-12 18:30)
DX: O41.03X0 Oligohydramnios, third trimester, not applicable or unspecified (principal); Z3A.36 36 weeks gestation of pregnancy; Z37.0 Single live birth; O69.81X0 Labor and delivery complicated by cord around neck, without compression, not applicable or unspecified; O34.219 Maternal care for unspecified type scar from previous cesarean delivery; Z30.2 Encounter for sterilization; O99.62 Diseases of the digestive system complicating childbirth; K66.0 Peritoneal adhesions (postprocedural) (postinfection)

== ENCOUNTER 2021-01-29 19:16 | Emergency (ER) | payer MEDICAID ==
[~2021-01-29] VITALS: Ht 154.9 cm; Wt 59.1 kg
[~2021-01-29 19:16] MED LIST changes: +IBUPROFEN800 MG PO; +PERCOCET 10-321 EAC1 PO
[2021-01-29 19:19] VITALS: Ht 154.9 cm; Wt 59.1 kg
[2021-01-29] MEDS ORDERED: TRIPLE ANTIBI28.4 GM TOPICAL (19:35)
[2021-01-29 19:43] VITALS: BP 122/7
== END 2021-01-29 19:42 | disposition home or self-care (01) ==
LOC: D.ER 19:16
DX: T23.001A Burn of unspecified degree of right hand, unspecified site, initial encounter (principal); K21.9 Gastro-esophageal reflux disease without esophagitis; X08.8XXA Exposure to other specified smoke, fire and flames, initial encounter; Y93.9 Activity, unspecified; Y92.9 Unspecified place or not applicable

== ENCOUNTER 2021-02-20 13:03 | Emergency (ER) | payer MEDICAID ==
[~2021-02-20] VITALS: Ht 154.9 cm; Wt 52.3 kg
[~2021-02-20 13:03] MED LIST changes: +TRIPLE ANTIBI28.4 GM TOPICAL
[2021-02-20 13:16] VITALS: Ht 154.9 cm; Wt 52.3 kg
[2021-02-20] MEDS ORDERED: CLARITIN 10 MG10 MG PO (13:49)
[2021-02-20] MEDS ORDERED: ZPAK PO (13:49)
[2021-02-20 14:02] VITALS: BP 115/72
== END 2021-02-20 13:58 | disposition home or self-care (01) ==
LOC: D.ER 13:03
DX: J06.9 Acute upper respiratory infection, unspecified (principal); R51.9 Headache, unspecified